=== PATIENT | female | born 2000 | race Caucasian/White ===

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

== ENCOUNTER → 2024-12-03 13:26 | Outpatient (BNVA) | payer MEDICAID, SELFPAY | PROVIDERS: Visit Provider Nurse Practitioner | DX: E88.819 Insulin resistance, unspecified (principal) | CPT/HCPCS: 80053; 80061; 83036; 84443; 85025 ==